=== PATIENT | female | born 1965 | race Caucasian/White ===

== ENCOUNTER 2021-07-08 08:31 | Day surgery (SDC) | payer BC, SELFPAY ==
--- NOTE | 2021-06-24 13:22 | HP_ITS ---
DATE OF SERVICE: 07/08/2021 DATE OF PROPOSED SURGERY: July 08, 2021. PREOPERATIVE DIAGNOSES: 1. Hallux abductovalgus, right foot. 2. Hammertoe, right fifth toe. 3. Painful skin lesion, right fifth toe. PLANNED PROCEDURES: 1. Cedric bunionectomy with open reduction and internal fixation. 2. Hammertoe repair, right fifth toe. 3. Excision of painful skin lesion, dorsum right fifth toe with a derotational incision. PLANNED ANESTHSIA: MAC anesthesia. CHIEF COMPLAINT AND HISTORY OF PRESENT ILLNESS: Ally Blake is a 55-year-old female, who relates history of painful right great toe as well as right 5th toe and painful skin lesion, right fifth toe. These conditions have been present over the past several years. Conservative treatment consisting of altered shoe gear and padding has proven ineffective. The patient had previous surgery of her bunion at [facility] in the with unfortunate recurrence. The patient is now requesting surgical treatment. PAST MEDICAL HISTORY: Remarkable for migraine headaches, history of hip implant surgery. CURRENT MEDICATIONS: The patient takes Fioricet as needed for migraine headaches and multivitamins. ALLERGIES: PATIENT RELATES NEGATIVE REACTION TO ALL NONSTEROIDAL ANTI-INFLAMMATORY DRUGS WELL NEGATIVE REACTION TO CODEINE. FAMILY HISTORY: Significant for hypertension, arthritis. SOCIAL HISTORY: The patient denies smoking, denies use of any recreational drugs. The patient does relate alcohol consumption and also does drink caffeinated drinks. 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 PHYSICAL EXAMINATION: VASCULAR: Reveals +1/4 pulses, DP and PT arteries with normal cap refill time noted bilateral feet. NEUROLOGIC: Reveals intact sensation. The patient does have pain on palpation of both the right bunion deformity as well as right 5th toe and pain on palpation of the skin lesion of the right 5th toe as well. DERMATOLOGIC: Reveals well-healed incision on the dorsum of the right first MTP joint from previous surgery. The patient does have scar tissue and painful keratoma dorsal lateral right fifth toe PIP joint. ORTHOPEDIC: Reveals a painful bunion deformity of the right first metatarsophalangeal joint and painful hammertoe, right fifth toe. The patient was seen in my office most recently on June 22, 2021. Preoperative informed consent was obtained from the patient that day for her planned right foot surgery. Preoperative medical clearance will be provided by her primary care physician's office, Dr. Yane Márquez. JHONNY Ruiz/FRANKIE / [id number]
[2021-07-05 12:00] VITALS: BMI 24.5
--- NOTE | 2021-07-07 12:34 | P.CONAN_ITS ---
Documented by User: Eva Shah NP 07/07/21 14:02 HPI - Anesthesia Eval Consult details Narrative: 55yo F for Right Cedric Bunionectomy, Fifth right hammer toe PCP cleared [facility] Past Medical History Medical History Anxiety Arthritis History of palpitations History of postoperative nausea and vomiting Migraines Surgical History Surgical History History of bunionectomy of left great toe History of bunionectomy of right great toe Hx of appendectomy Hx of total hip arthroplasty Social History Social History Are you a primary patient care representative to a significant other at home: No Do you presently have visiting nurse or other home services: No Patient Tobacco Use Status: Never used Tobacco Use of substances other than those prescribed or required for medical reasons: No Are you DNR?: No Advance Directives: No Advance Directives Information Provided: Yes Advance Directives on File: No Meds Allergies Allergy/AdvReac Type Severity Reaction Status Date / Time codeine Allergy Severe Hives Verified 07/05/21 12:00 NSAIDS (Non-Steroidal Allergy Severe Eye Verified 07/05/21 12:00 Anti-Inflamma Swelling, hypotension Home Medications Medication Instructions Recorded Confirmed Last Taken Type butalbital-acetam 1 tab PO Q6H PRN 07/05/21 07/05/21 Unknown History inophen-caffeine 50 mg-325 mg-40 mg tablet Exam Exam Date and Time: July 07, 2021 1234 Height,Weight and Vital Signs: Height 5 ft 0.5 in Weight 58.06 kg Pertinent Lab Results Pertinent Lab Results: Outside labs WNL Narrative Narrative: EKG 06/2021 NSR Assessment and Plan Assessment Anesthesia Assessment: Chart Reviewed Documented by User: Callie Dickens MD 07/08/21 10:08 [facility] Active Problems Active Problems: H/o palpitations. Holter monitor in 02/2021 did not roller picker anything but patient states HR goes up to 130s sometimes Past Medical History Medical History Anxiety Arthritis History of palpitations History of postoperative nausea and vomiting Migraines Family History Family history of problems with anesthesia: No Surgical History Surgical History History of bunionectomy of left great toe History of bunionectomy of right great toe Hx of appendectomy Hx of total hip arthroplasty History of Problems with Anesthesia: Yes (PONV. Would rather avoid narcotics if possible. Thinks responsible for her PONV. Did fine with just tylenol post hip surgery) Social History Social History Are you a primary patient care representative to a significant other at home: No Do you presently have visiting nurse or other home services: No Patient Tobacco Use Status: Never used Tobacco Use of substances other than those prescribed or required for medical reasons: No Are you DNR?: No Advance Directives: No Advance Directives Information Provided: Yes Advance Directives on File: No Meds Allergies Allergy/AdvReac Type Severity Reaction Status Date / Time codeine Allergy Severe Hives Verified 07/05/21 12:00 NSAIDS (Non-Steroidal Allergy Severe Eye Verified 07/05/21 12:00 Anti-Inflamma Swelling, hypotension Home Medications Medication Instructions Recorded Confirmed Last Taken Type butalbital-acetam 1 tab PO Q6H PRN 07/05/21 07/05/21 Unknown History inophen-caffeine 50 mg-325 mg-40 mg tablet Exam Height,Weight and Vital Signs: Height 5 ft 0.5 in Weight 58.06 kg Vital Signs Temp Pulse Resp BP Pulse Ox 07/08/21 09:05 97.6 F 85 16 133/85 100 Airway Mallampati Class: II TM Dist: >3cm Neck ROM: Full Loose/Missing/Broken Teeth: No Heart: RRR Lungs: CTAB Assessment and Plan Assessment Anesthesia Assessment: Anesthesia Plan Discussed Final Anesthetic Review Family History of Problems with Anesthesia: No History of Problems with Anesthesia: Yes (PONV. Would rather avoid narcotics if possible. Thinks responsible for her PONV. Did fine with just tylenol post hip surgery) NPO: Yes ASA Class: II Final Preanesthetic Review: No Changes in Pt Med Stat, Meds/Allgs Chart Reviewed, Consent Obtained/Reviewed and Anes Risks/Benef Reviewed Patient Risk: Low Procedure Risk: Low Assessment/Block/Sedation in SS: Assess/Block/Sedation-SS Anesthetic Plan Anesthetic Plan: MAC: Disposition: Standard PACU
[2021-07-08 09:05] VITALS: BP 133/85; PULSE 85; RESP 16; TEMP 36.4; O2SAT 100
[2021-07-08] MEDS: Lactated Ringers 1,000 ML 100 ML IVCONT (09:30)
[2021-07-08 11:54] VITALS: BP 104/59; PULSE 69; RESP 20; TEMP 36.6; O2SAT 100
--- NOTE | 2021-07-08 11:54 | PCN2_ITS ---
Brief Operative Note Date of procedure: 07/08/21 Pre-op diagnosis: hallux valgus right, hammertoe right 5th, painful skin disease right 5th Post-op diagnosis: same Procedure: keith bunionectomy with orif right, hammertoe repair right 5th with kwire, excision of skin right 5th 2.4cm Anesthesia: MAC Surgeon: Patrick Anton Sales Ware[employer] Driver: Cristiana Foley Estimated blood loss (mL): 10.0 Condition: stable Disposition: PACU
[2021-07-08 12:09] VITALS: BP 121/84; PULSE 84; RESP 17; O2SAT 98
[2021-07-08 12:24] VITALS: BP 113/67; PULSE 69; RESP 18; O2SAT 98
[2021-07-08 12:39] VITALS: BP 120/76; PULSE 71; RESP 18; O2SAT 99
--- NOTE | 2021-07-08 15:13 | OP_ITS ---
SURGEON: Patrick Anton DPM PREOPERATIVE DIAGNOSIS: POSTOPERATIVE DIAGNOSIS: PROCEDURE PERFORMED: ESTIMATED BLOOD LOSS: COMPLICATIONS: ANESTHESIA: Consisted of local administration of a total 18 cc of an equal mix of 2% lidocaine with epinephrine 1:100,000 and 0.5% Marcaine plain. Please note that during the procedure, due to patient experiencing some discomfort additional lidocaine was administered approximately total of 5 cc to the right first MTP joint and this was with epinephrine 1:200,000. This was performed under intravenous sedation/MAC anesthesia. ASSISTANTS: SPECIMENS: PREOPERATIVE DIAGNOSES: 1. Hallux abductovalgus, right foot. 2. Hammertoe, right fifth toe. 3. Painful skin lesion, right fifth toe. POSTOPERATIVE DIAGNOSES: 1. Hallux abductovalgus, right foot. 2. Hammertoe, right fifth toe. 3. Painful skin lesion, right fifth toe. PROCEDURES PERFORMED: 1. Isidro bunionectomy with open reduction and internal fixation, right foot. 2. Hammertoe repair, right fifth toe. 3. Excisional skin biopsy, right 5th toe measuring 2.4 cm in length. INTRODUCTION: The patient was brought to the operating room, placed on the operating table in supine position. After having been suitably anesthetized with local infiltrative anesthesia, the right lower extremity was then prepped and draped in the usual sterile manner. Please note that prior to start of the procedures, the right foot was exsanguinated utilizing an Esmarch bandage and right ankle tourniquet was inflated to 250 mmHg pressure for the duration of the procedures. Please note, at 44 minutes, the tourniquet was deflated for several minutes while we looking for additional hardware instrumentation and then reinflated. Total tourniquet time altogether was only 62 minutes. EXCISIONAL BIOPSY OF SKIN, RIGHT FIFTH TOE. Attention was directed to the dorsal aspect of the right fifth toe where there was found to be pimple, keratotic skin lesion. Incision approximately 2.5 cm in length. It was effected. Centered over the dorsum of the right fifth toe proximal interphalangeal joint and converging semi-elliptical incision was placed laterally to also help rotate the toe upon closure. The incisions were deepened in the same plane and the ellipse of skin was excised from the wound in toto and sent to Pathology. The skin margins were underscored and retracted. HAMMERTOE REPAIR, RIGHT FIFTH TOE. Attention was now directed to the right 5th toe through the previous skin incisions where a transverse incision was effected through the extensor tendon complex at the level of the proximal interphalangeal joint. The extensor tendon was underscored and retracted. The hypertrophic head of the proximal phalanx was delivered from the wound and resected utilizing a sagittal saw. The flexor tendon was identified and found to be contracted and tenotomized. The phalanges were then fixated in corrected position utilizing a single 0.045 inch K-wire driven through the midline of the phalanges. Excess K-wire was bent, cut, and capped. The extensor tendon was caught to maintain utilizing 3-0 Vicryl. Skin margins closed with 4-0 nylon. ISIDRO BUNIONECTOMY WITH OPEN REDUCTION AND INTERNAL FIXATION, RIGHT FOOT. Attention was directed to the dorsal aspect of the right first metatarsophalangeal joint where incision approximately 7 cm length was effected centered over the dorsum of the right first MTP joint. The incision was deepened in same plane and hemostasis was acquired as necessary. Please note that prior to the surgery had been performed on this patient many years ago. Due to this, there was found to be extensive capsulodesis, the subcutaneous tissue long the medial aspect of the first MTP joint capsule as well as degenerative changes to the medial aspect of the first MTP joint capsule. A dorsal linear capsule incision was then effected and the capsule and periosteum was underscored and retracted. There was found to be also hypertrophic bone exostosis at the distal shaft along the medial aspect of the first metatarsal. This was resected utilizing sagittal saw. The medial eminence had already been removed, so there was no need for a removal of bone from this area. However, there was found to be hypertrophic degenerative changes of bone on the dorsal aspect of the first metatarsal head and this was removed utilizing sagittal saw. The first intermetatarsal space was exposed via blunt and sharp dissection. A lateral capsulotomy and adductor tenotomy performed via blunt and sharp dissection. Attention was directed back to the medial aspect of the first metatarsal head where a modified V osteotomy was carried out through the distal shaft and metaphysis. The capital fragment was shifted laterally and then fixated utilizing 2 of the Alise 3.0 mm cannulated screws each measuring 17 mm in length. Unfortunately, this 2 screw fixation was not found to give adequate interfragmental compression. The [employer] help desk representative left room, looking for a 4-0 sized screw to be utilized to improve fixation, but we were not able to locate one that was of adequate length. Unfortunately, all the screws that were located were too long. Therefore, it was decided to give another point of fixation utilizing a 0.054-inch K-wire driven from the distal dorsal medial aspect of the first metatarsal head crossing the osteotomy and exiting the bone along the plantar medial aspect of the first metatarsal. Excess K-wire was retrograded, so that the K-wire was just beneath the articular surface distally. Excess K-wire was bent, cut, and capped. The wound was irrigated with copious amounts of sterile saline. Gently, there was a small distal shelf of the metatarsal osteotomy that needed to be resected and this was done so without disturbing the fixation. The wound was again irrigated. The capsule was closed with 3-0 Vicryl. Skin margins were closed with 4-0 Monocryl, subcuticular and then reinforced with 3-0 nylon simple sutures as well as 4-0 nylon simple sutures. CONCLUSION: At the conclusion of this procedure, the operative sites were dressed with half-inch Steri-Strips, injected with 6 cc of Marcaine 0.5% plain. Operative sites were dressed with sterile Betadine-soaked Xeroform, sterile Xeroform to the right 5th toe, 1 inch Conform to the right 5th toe and then Kerlix fluffs, and 4 inch Conform to the remainder of the foot. The patient tolerated the surgery and anesthesia well and left the operating room via cart to the recovery room with vital signs stable. FINAL DISPOSITION: The patient is discharged to home with instructions for self-care to include the followin. To keep the dressings dry, clean, and intact. 2. To keep the right leg elevated with ice above the ankle. 3. Take all medications as prescribed. 4. Limit activity to minimum. 5. To always use crutches, walker, wheelchair, or knee scooter to maintain strict nonweightbearing on the right lower extremity. 6. The patient since she cannot take anti-inflammatory, will be taking Tylenol for pain control, gabapentin, Keflex 500 mg b.i.d. for 10 days. The patient does not wish for any narcotic pain medications. MICRO LAB ANALYST: Dr. Foley. JHONNY Ruiz/MODL / [id number]
== END 2021-07-08 13:19 | disposition home or self-care (01) ==
PROVIDERS: PCP Nurse Practitioner Family; Visit Provider Podiatrist
PROC: (CPT 28292; principal; 2021-07-08 10:20)
DX: M20.11 Hallux valgus (acquired), right foot (principal); M20.41 Other hammer toe(s) (acquired), right foot; M19.071 Primary osteoarthritis, right ankle and foot; G43.909 Migraine, unspecified, not intractable, without status migrainosus; Z79.899 Other long term (current) drug therapy; Z96.641 Presence of right artificial hip joint
CPT/HCPCS: 28296; 28285; 88304; 88305; 88311; C1713; J0131; J0690; J1100; J2250; J2370